=== PATIENT | female | born 1975 | race African-American/Black ===

== ENCOUNTER 2018-03-07 23:53 | Emergency (ER) | payer BC, MEDICAID, OTHER ==
[~2018-03-07] VITALS: Ht 165.1 cm; Wt 62.6 kg
[~2018-03-07 23:53] MED LIST: ALBU2.5V11 HHN; ALBU5SOL HHN
[2018-03-08] MEDS ORDERED: IPRATROPIUM NEB FS 0.5 MG/2.5 ML AMPUL.NEB ONE (00:16)
[2018-03-08] MEDS ORDERED: ALBUTEROL FS 2.5 MG/3 ML VIAL.NEB ONE (00:16)
[2018-03-08] MEDS ORDERED: methylPREDNISolone SOD SUCC 125 MG/2ML VIAL ONE (00:25)
[2018-03-08] MEDS ORDERED: methylPREDNISolone SOD SUCC 125 MG/2ML VIAL IV ONE (00:30)
[2018-03-08] MEDS ORDERED: IV NS 0.9% 1,000 ML BAG IV ONE (00:30)
[2018-03-08] MEDS ORDERED: ALBUTEROL FS 2.5 MG/3 ML VIAL.NEB CONTNEB ONE (00:30)
[2018-03-08] MEDS ORDERED: IPRATROPIUM NEB FS 0.5 MG/2.5 ML AMPUL.NEB NEB ONE (00:30)
--- NOTE | 2018-03-08 00:30 | NUR ---
PT PRESENTED TO THE ER WITH A C/O ASTHMA EXACERBATION. PT IS TACHYPNEIC. RT AT THE BEDSIDE. PT GOING ON BREATHING TX. PT IS ON THE MONITOR AND CONTINUOUS PULSE OX. 20G IV STARTED IN RAC. BLOOD DRAWN AND SENT TO LAB.
[2018-03-08] MEDS ORDERED: Magnesium 1GM/D5W 100ML PREMIX 100 ML IV ONE (00:36)
[2018-03-08 00:44] LABS: BASOPHILS # (AUTO) 0.1 /CMM (0.0-0.2); BASOPHILS % (AUTO) 0.8 % (0.0-2.0); EOSINOPHILS % (AUTO) 4.8 % (0.0-6.0); HEMATOCRIT 44 % (33-45); HEMOGLOBIN 14.7 g/dL (11.5-14.8); LYMPHOCYTES # (AUTO) 1.4 /CMM (0.8-4.8); LYMPHOCYTES % (AUTO) 19.4 % (20.0-44.0); MEAN CORPUSCULAR HGB CONC 34 g/dl (31.0-36.0); MEAN CORPUSCULAR VOLUME 93 fL (82-100); MONOCYTES # (AUTO) 0.4 /CMM (0.1-1.30); MONOCYTES % (AUTO) 4.9 % (2.0-12.0); NEUTROPHILS # (AUTO) 5.2 /CMM (1.8-8.9); NEUTROPHILS % (AUTO) 70.1 % (43.0-81.0); PLATELET COUNT (AUTO) 354 /CMM (150-450); RDW COEFFICIENT OF VARIATION 13.9 (11.5-15.0); RED BLOOD CELL COUNT(AUTO) 4.71 MIL/uL (4.0-5.2); WHITE BLOOD COUNT (AUTO) 7.5 K/uL (4.3-11.0)
--- NOTE | 2018-03-08 00:47 | NUR ---
CALLED NURSING SUP. FOR TELE BED
[2018-03-08 01:00] LABS: CALCIUM, SERUM 9.4 mg/dL (8.5-10.1); CARBON DIOXIDE 27 mmol/L (21-32); CHLORIDE 106 mmol/L (98-107); GLUCOSE 113 mg/dL (74-106); POTASSIUM 3.8 mmol/L (3.5-5.1); SODIUM SERUM 141 mmol/L (136-145); UREA NITROGEN, BLOOD 6 mg/dL (7-18)
[2018-03-08] MEDS ORDERED: LORAZEPAM 1 MG TABLET PO PRN (01:00)
[2018-03-08] MEDS ORDERED: ONDANSETRON HCL/PF 4 MG/2 ML VIAL IVP PRN (01:00)
[2018-03-08] MEDS ORDERED: ALBUTEROL FS 2.5 MG/0.5 ML VIAL.NEB NEB PRN (01:00)
[2018-03-08] MEDS ORDERED: ZOLPIDEM TARTRATE 5 MG TABLET PO PRN (01:00)
[2018-03-08] MEDS ORDERED: HYDROCODONE/APAP 5/325MG 1 EACH TABLET PO PRN (01:00)
[2018-03-08] MEDS ORDERED: ACETAMINOPHEN 325 MG TABLET PO PRN (01:00)
[2018-03-08] MEDS ORDERED: MAGNESIUM HYDROXIDE 30 ML UDC PO PRN (01:00)
[2018-03-08] MEDS ORDERED: MAG HYDROX/AL HYDROX/SIMETH 30 ML UDC PO PRN (01:00)
[2018-03-08 01:03] LABS: INR 0.98 (0.87-1.13)
[2018-03-08 01:06] LABS: ALANINE AMINOTRANSFERASE 18 U/L (12-78); ALBUMIN 3.5 g/dL (3.4-5.0); ALKALINE PHOSPHATASE 87 U/L (46-116); ASPARTATE AMINOTRANSFERASE 15 U/L (15-37); BILIRUBIN,DIRECT 0.1 mg/dL (0.0-0.2); BILIRUBIN,TOTAL 0.4 mg/dL (0.2-1.0); TOTAL PROTEIN, SERUM 7.9 g/dL (6.4-8.2)
[2018-03-08 01:07] LABS: TROPONIN I < 0.017 ng/mL (0.00-0.056)
[2018-03-08] MEDS: Magnesium 1GM/D5W 100ML PREMIX 100 ML IV SCH ×2 (01:30→02:05)
--- NOTE | 2018-03-08 01:50 | NUR ---
PT IS GOING TO [facility].
[2018-03-08] MEDS ORDERED: LEVOFLOXACIN 750 MG /D5W 150ML PIGGYBACK IV ONE (02:00)
--- NOTE | 2018-03-08 02:00 | NUR ---
PT APPEARS TO BE SLEEPING COMFORTABLY WITH NO S/S OF PAIN OR DISTRESS NOTED.
[2018-03-08] MEDS ORDERED: LEVOFLOXACIN 750 MG /D5W 150ML 150 ML IV ONE (02:23)
--- NOTE | 2018-03-08 02:30 | NUR ---
LEVOQUIN 750 ML INFUSING.
--- NOTE | 2018-03-08 03:13 | NUR ---
CALLED [facility] FOR TRANSPORT TRIP #[id number] ETA FOR BLS [id number]
--- NOTE | 2018-03-08 03:30 | NUR ---
URINE SAMPLE OBTAINED AND SENT TO LAB.
--- NOTE | 2018-03-08 03:32 | NUR ---
[facility] ROBISON 30 MINS.
[2018-03-08 03:43] LABS: APPEARANCE,URINE CLEAR (CLEAR); BILIRUBIN,URINE NEGATIVE (NEGATIVE); BLOOD, URINE NEGATIVE Ery/uL (NEGATIVE); COLOR,URINE YELLOW (YELLOW); KETONES,URINE NEGATIVE (NEGATIVE); LEUKOCYTE ESTERASE ,URINE 1+ (NEGATIVE); NITRITE, URINE NEGATIVE (NEGATIVE); PROTEIN,URINE NEGATIVE (NEGATIVE); UGLUCOSE NEGATIVE (NEGATIVE); UROBILINOGEN,URINE 0.2 EU/dL (0.2)
--- NOTE | 2018-03-08 03:51 | NUR ---
[facility] ARRIVED.
--- NOTE | 2018-03-08 03:53 | NUR ---
ROSALBA FROM [facility] SPOKE TO MARTIN. CREW TO STAY UNTIL WE GET A BED AT [facility]
[2018-03-08 03:54] VITALS: BP 132/85
--- NOTE | 2018-03-08 03:57 | NUR ---
PT IS EATING CRACKERS AND JUICE. PT IS TOLERATING PO WELL.
[2018-03-08 04:02] LABS: BACTERIA,URINE None seen /HPF (None Seen); RBC,URINE 0-2 /HPF (0-2); SQUAMOUS EPITHELIAL CELL,UR Few /HPF (None Seen); WBC,URINE 0-2 /HPF (0-3)
--- NOTE | 2018-03-08 04:41 | NUR ---
[facility] ROOM [id number] NUMBER FOR REPORT [phone] ACCEPTED BY MD VORA
--- NOTE | 2018-03-08 04:56 | NUR ---
CALLING REPORT TO NURSE FOR ROOM [id number] AT [facility]
--- NOTE | 2018-03-08 04:59 | NUR ---
REPORT GIVEN TO BREONNA SANCHEZ
--- NOTE | 2018-03-08 05:00 | NUR ---
AMBULANCE ARRIVED AND PT IS BEING TRANSPORTED TO [facility]
[2018-03-08] MEDS ORDERED: methylPREDNISolone SOD SUCC 125 MG/2ML VIAL IV SCH (09:00)
== END 2018-03-08 05:03 | disposition short-term general hospital (02) ==
LOC: ER 23:54
DX: J45.902 Unspecified asthma with status asthmaticus (principal); I10 Essential (primary) hypertension
CPT/HCPCS: 36415; 71045-TC; 80048-TC; 80076-TC; 81000-TC; 83605-TC; 84484-TC; 85025-TC; 85730-TC; 87040-TC; 87081-TC; 87086-TC; A4606; J1956; J2930; J3475; J7030; Z7610